=== PATIENT | male | born 1940 | race Two or more races ===

== ENCOUNTER 2022-06-12 21:45 | Inpatient (IN) | payer OTHER ==
[2022-06-12 22:05] VITALS: BMI 20.7
[2022-06-12] MEDS ORDERED: LIDOCAINE HCL 2% JELLY 10 ML CARTRIDGE ONE (22:34)
[2022-06-13 00:49] LABS: BASO % 0.1 % (0-2.0); HEMATOCRIT 39.3 % (35.4-49); HEMOGLOBIN 12.8 GM/dL (11.7-16.9); LYMPH % 5.7 % (8-40); MCH 26.8 pg (25.7-33.7); MCHC 32.5 g/dl (32.0-35.9); MEAN CELL VOLUME 82.5 fl (80-96); MEAN PLT VOLUME 9.8 fl (7.5-11.1); MONO % 4.9 % (3.8-10.2); NEUT % 89.3 % (42.8-82.8); PLATELET COUNT 127 10^3/uL (134-434); RBC 4.76 M/mm3 (4.00-5.60); RDW 15.1 % (11.9-15.9); WHITE BLOOD COUNT 12.1 K/mm3 (4.0-10.0)
[2022-06-13 00:50] LABS: EPI CELLS 1 /uL (0-25.1); HYALINE CASTS 1 /uL (0-3.1); PH,URINE 7.5 (5.0-8.0); URINE APPEARANCE CLOUDY; URINE BACTERIA >9,000 /uL (0-1359); URINE BILIRUBIN NEGATIVE (NEGATIVE); URINE COLOR ORANGE; URINE GLUCOSE (UA) NEGATIVE (NEGATIVE); URINE KETONE TRACE (NEGATIVE); URINE LEUK ESTERASE 3+ (NEGATIVE); URINE NITRITE NEGATIVE (NEGATIVE); URINE PROTEIN 2+ (NEGATIVE); URINE RBC 3520 /uL (0-23.9); URINE WBC 5169 /uL (0-25.8)
[2022-06-13 01:07] LABS: CALCIUM 8.5 mg/dL (8.5-10.1)
[2022-06-13 01:08] LABS: ALBUMIN 3.2 g/dl (3.4-5.0)
[2022-06-13 01:11] LABS: CREATININE 1.2 mg/dL (0.55-1.3)
[2022-06-13 01:13] LABS: BILIRUBIN,TOTAL 1.2 mg/dL (0.2-1); TOT PROT 6.9 g/dl (6.4-8.2)
[2022-06-13] MEDS ORDERED: CEFTRIAXONE 1,000 MG in DEXTROSE 5%-WATER - 50 ML IVPB ONE (02:12)
[2022-06-13] MEDS ORDERED: TAMSULOSIN HCL 0.4 MG CAP PO ONE (02:38)
[2022-06-13] MEDS ORDERED: amLODIPine BESYLATE 5 MG TABLET (FP) PO ONE (02:40)
[2022-06-13] MEDS ORDERED: CEFTRIAXONE 1 GM/50 ML BAG ONE (02:45)
[2022-06-13] MEDS ORDERED: TAMSULOSIN HCL 0.4 MG CAP ONE (02:45)
[2022-06-13] MEDS ORDERED: amLODIPine BESYLATE 5 MG TABLET (FP) ONE (04:00)
[2022-06-13 04:26] LABS: BILIRUBIN,DIRECT 0.3 mg/dL (0.0-0.2)
[2022-06-13] MEDS: amLODIPine BESYLATE 5 MG TABLET (FP) PO SCH (11:23)
[2022-06-13] MEDS: CEFTRIAXONE 1 GM in DEXTROSE 5%-WATER - 50 ML IVPB SCH (11:24)
[2022-06-13] MEDS: ENOXAPARIN NA (PORCINE) 40 MG/0.4 ML DISP.SYRIN SQ SCH (11:24)
[2022-06-13] MEDS: FINASTERIDE 5 MG TABLET (FP) PO SCH (18:04)
[2022-06-13] MEDS: TAMSULOSIN HCL 0.4 MG CAP PO SCH (21:26)
[2022-06-14] MEDS: FINASTERIDE 5 MG TABLET (FP) PO SCH (10:07)
[2022-06-14] MEDS: amLODIPine BESYLATE 5 MG TABLET (FP) PO SCH (10:07)
[2022-06-14] MEDS: TAMSULOSIN HCL 0.4 MG CAP PO SCH ×2 (10:07→21:21)
[2022-06-14] MEDS: ENOXAPARIN NA (PORCINE) 40 MG/0.4 ML DISP.SYRIN SQ SCH (10:08)
[2022-06-14] MEDS: CEFTRIAXONE 1 GM in DEXTROSE 5%-WATER - 50 ML IVPB SCH (10:08)
[2022-06-14 11:15] LABS: BASO % 0.2 % (0-2.0); EOS % 0.2 % (0-4.5); HEMATOCRIT 40.6 % (35.4-49); HEMOGLOBIN 13.6 GM/dL (11.7-16.9); LYMPH % 14.9 % (8-40); MCH 27.7 pg (25.7-33.7); MCHC 33.6 g/dl (32.0-35.9); MEAN CELL VOLUME 82.5 fl (80-96); MEAN PLT VOLUME 8.3 fl (7.5-11.1); MONO % 11.5 % (3.8-10.2); NEUT % 73.2 % (42.8-82.8); PLATELET COUNT 164 10^3/uL (134-434); RBC 4.92 M/mm3 (4.00-5.60); WHITE BLOOD COUNT 5.6 K/mm3 (4.0-10.0)
[2022-06-14 11:40] LABS: ALBUMIN 3.2 g/dl (3.4-5.0); BLOOD UREA NITROGEN 10.9 mg/dL (7-18); CALCIUM 8.9 mg/dL (8.5-10.1); MAGNESIUM 2.6 mg/dL (1.8-2.4); PHOSPHOROUS 2.1 mg/dL (2.5-4.9)
[2022-06-14 11:41] LABS: BILIRUBIN,TOTAL 0.5 mg/dL (0.2-1); TOT PROT 7.1 g/dl (6.4-8.2)
[2022-06-14 11:42] LABS: CREATININE 1.1 mg/dL (0.55-1.3)
[2022-06-14 22:19] VITALS: RESP 20
[2022-06-15 09:05] LABS: HEMATOCRIT 41.2 % (35.4-49); HEMOGLOBIN 13.8 GM/dL (11.7-16.9); MCH 27.3 pg (25.7-33.7); MCHC 33.4 g/dl (32.0-35.9); MEAN CELL VOLUME 81.9 fl (80-96); MEAN PLT VOLUME 8.2 fl (7.5-11.1); PLATELET COUNT 188 10^3/uL (134-434); RBC 5.03 M/mm3 (4.00-5.60); RDW 15.1 % (11.9-15.9); WHITE BLOOD COUNT 4.2 K/mm3 (4.0-10.0)
[2022-06-15] MEDS: ENOXAPARIN NA (PORCINE) 40 MG/0.4 ML DISP.SYRIN SQ SCH (09:12)
[2022-06-15] MEDS: CEFTRIAXONE 1 GM in DEXTROSE 5%-WATER - 50 ML IVPB SCH (09:12)
[2022-06-15] MEDS: TAMSULOSIN HCL 0.4 MG CAP PO SCH (09:13)
[2022-06-15] MEDS: FINASTERIDE 5 MG TABLET (FP) PO SCH (09:13)
[2022-06-15] MEDS: amLODIPine BESYLATE 5 MG TABLET (FP) PO SCH (09:13)
[2022-06-15 09:35] LABS: ALBUMIN 3.2 g/dl (3.4-5.0); BLOOD UREA NITROGEN 11.6 mg/dL (7-18); CALCIUM 9.3 mg/dL (8.5-10.1); MAGNESIUM 2.4 mg/dL (1.8-2.4)
[2022-06-15 09:38] LABS: PHOSPHOROUS 3.7 mg/dL (2.5-4.9)
[2022-06-15 09:40] LABS: BILIRUBIN,TOTAL 0.5 mg/dL (0.2-1)
[2022-06-15] MEDS ORDERED: TAMSULOSIN HCL 0.4 MG CAP PO ONE (15:08)
[2022-06-15 15:24] VITALS: BP 140/79; PULSE 79; TEMP 97.8
[2022-06-15] MEDS ORDERED: CEFUROXIME AXETIL 500 MG TABLET PO SCH (22:00)
== END 2022-06-15 19:00 | disposition home or self-care (01) | DRG 468 ==
LOC: JER 21:45 → JERBED 06-13 02:13 → J8W 06-13 09:34
PROVIDERS: ADMIT Internal Medicine
DX: N13.9 Obstructive and reflux uropathy, unspecified (principal); U07.1 COVID-19; N17.9 Acute kidney failure, unspecified; I16.9 Hypertensive crisis, unspecified; N39.0 Urinary tract infection, site not specified; N40.1 Benign prostatic hyperplasia with lower urinary tract symptoms; R33.9 Retention of urine, unspecified; D72.829 Elevated white blood cell count, unspecified; I10 Essential (primary) hypertension; E78.5 Hyperlipidemia, unspecified
CPT/HCPCS: 36415; 71045-TC-FY; 74178-TC; 76775-TC; 76856-TC; 80053; 81003; 82248; 83735; 84100; 84443; 85025; 85027; 87040; 87086; 87186; 93005; 93010; 99285-25; C9803-CS; Q9967; U0003; U0005